=== PATIENT | male | born 1995 | race American Indian/Alaskan Native ===

== ENCOUNTER 2017-10-02 14:48 | Emergency (ER) | payer BC ==
[2017-10-02 16:05] VITALS: BP 154/104
[2017-10-02] MEDS ORDERED: ZOFRAN IV ONE (17:10)
[2017-10-02] MEDS ORDERED: NACL 0.9% 1000 ML 1,000 ML IV ONE (17:10)
--- NOTE | 2017-10-02 17:31 | Event Note ---
Date: 10/02/17 Patient is a 22-year-old male past SURGICAL AVOID ABUSE WHO PRESENTS WITH NAUSEA AND VOMITING PATIENT STATES HE SMOKES WEED EVERYDAY IS ACTIVELY VOMITING ON THE IV FLUIDS IV ZOFRAN CBC BMP
[2017-10-02 17:46] LABS: BUN/Creatinine Ratio 16; Blood Urea Nitrogen 16 mg/dL (9-20); Hemolysis Index 61
[2017-10-02 17:49] LABS: Hematocrit 55.2 % (35.5-45.6); Hemoglobin 18.8 gm/dl (11.8-15.2); Mean Corpuscular HGB Conc 34 % (32-34); Mean Corpuscular Hemoglobin 31 pg (28-32); Mean Corpuscular Volume 92 fl (84-94); Platelet Count 194 K/mm3 (140-440); Red Blood Count 6.02 M/mm3 (3.65-5.03); Red Cell Distribution Width 13.5 % (13.2-15.2)
--- NOTE | 2017-10-02 20:31 | Cat Scan Report ---
FINAL REPORT PROCEDURE: CT ABDOMEN WO CON TECHNIQUE: Computerized axial tomography of the abdomen was performed without intravenous contrast. This study is performed without intravascular contrast material and its sensitivity for abdominal and pelvic pathology, including neoplasms, inflammation, abscess, free fluid, thrombosis, arterial dissection and infarction, is reduced compared with a contrast enhanced study. HISTORY: RUQ LUQ pain COMPARISON: No prior studies are available for comparison. FINDINGS: Liver, spleen, pancreas and adrenal glands are within normal limits. Bilateral kidneys demonstrate normal density without calculi or hydronephrosis. Aorta is of normal caliber. There is no free fluid or free air. Gallbladder is unremarkable. Small and large bowel loops are within normal limits. Appendix is partially visualized and appears unremarkable. There is mild degree residual stool. IMPRESSION: No acute intra-abdominal pathology as visualized on this noncontrast study.
--- NOTE | 2017-10-02 20:39 | Emergency Department Report ---
Vomiting/Diarrhea - HPI Chief Complaint: Nausea/Vomiting/Diarrhea Stated Complaint: VOMITING/NAUSEA/DIARRHEA Time Seen by Provider: 10/02/17 17:32 Duration: 1 week Severity: moderate Nausea/Vomiting Severity: Moderate Diarrhea Severity: None Pain Location: Epigastric Pain Severity: Mild Symptoms: Yes Able to Tolerate Fluids, No Watery Diarrhea, No Bloody diarrhea, No Fever, No Recent Unusual Foods, No Recent Untreated Water, No Recent use of Antibiotics, No Family w/ Similar Symptoms, No Contacts w/ Similar Symptoms, No Rash, No Hematuria, No Recent URI Symptoms Other History: This is a 22 y.o. male that presents with nausea and vomiting for 1 week. He went to Urgent Care last Sunday and started on prenisone and nasal saline for post nasal drip. Patient is concerned because he is having symptoms on and off for 4 months. He was wondering if it is coming from altitude change with travel. He has been to [place] and [place] for the past few months, returned 2 weeks ago. Admits to smoking marijuana daily and that is part of his trips to [place]. He vomited 4-8 times today, clear discharge, with intermittent epigastric pain. Denies chest pain, headache, dirrhea, and travel out of the country. ED Review of Systems ROS: Stated complaint: VOMITING/NAUSEA/DIARRHEA Other details as noted in HPI Constitutional: denies: chills, fever Respiratory: denies: cough, shortness of breath, wheezing Cardiovascular: denies: chest pain, palpitations Gastrointestinal: abdominal pain, nausea, vomiting (4-8 times today, intermittent for 1 week). denies: diarrhea, constipation Skin: denies: rash, lesions Neurological: denies: headache, weakness, paresthesias ED Past Medical Hx - Past Medical History Previous Medical History?: No - Surgical History Past Surgical History?: No - Social History Smoking Status: Never Smoker Substance Use Type: None - Medications Home Medications: Home Medications Medication Instructions Recorded Confirmed Last Taken Type Ciprofloxacin HCl [Cipro] 500 mg PO BID 7 Days #14 tablet 10/02/17 Unknown Rx Metoclopramide HCl [Metoclopramide 5 mg PO Q6HR PRN #20 tab 10/02/17 Unknown Rx ODT TAB] Vomiting Diarrhea Exam - Exam General: Vital signs noted. No distress. Alert and acting appropriately. HEENT: Yes Pharyngeal Erythema, Yes Moist Mucous Membranes, No Pharyngeal Exudates, No Rhinorrhea, No Conjuctival Injection, No Frontal Tenderness, No Maxillary Tenderness Neck: No Adenopathy Lungs: Yes Clear Lung Sounds, Yes Good Air Exchange, No Wheezes, No Stridor, No Cough, No Nasal Flaring, No Retractions, No Use of Accessory Muscles Heart exam: Regular: Yes, Murmur: No, Tachycardia: No Abdomen: Tenderness: Yes (RUQ), Peritoneal Signs: No, Distention: No, Hyperactive Bowel sounds: No Skin exam: Rash: No, Edema: No, Normal turgor: No Neurologic: Alert and oriented, no deficits. Musculoskeletal: Unremarkable. ED Course Vital Signs 10/02/17 15:59 Temperature 97.7 F Pulse Rate 73 Respiratory 16 Rate Blood Pressure 154/104 O2 Sat by Pulse 97 Oximetry ED Medical Decision Making - Lab Data Result diagrams: 10/02/17 17:24 10/02/17 17:24 - Radiology Data Radiology results: report reviewed CT of abdomen: IMPRESSION: No acute intra-abdominal pathology as visualized on this noncontrast study. - Medical Decision Making 22 y.o. male that presents with abdominal pain, nausea and vomiting for 1 week. Started on prednisone and nasal spray at Urgent Care Sunday for post nasal drip. Patient examined by me, no distress noted. Blood pressure elevated. Actively vomiting in FTWR. Given zofran 8 mg IV, NS 1L IV x [address] of abdomen and pelvis obtained. Patient informed of normal results. Obtained CBC and BMP. Start cipro and metoclopramide for gastroenteritist. F/U with PCP. Discharged home. Critical care attestation.: If time is entered above; I have spent that time in minutes in the direct care of this critically ill patient, excluding procedure time. ED Disposition Clinical Impression: Gastroenteritis Disposition: DC-01 TO HOME OR SELFCARE Is pt being admited?: No Does the pt Need Aspirin: No Condition: Stable Instructions: Gastroenteritis (ED), Acute Nausea and Vomiting (ED) Additional Instructions: Complete full course of medication as prescribed. Follow up with Primary Care Provider in 48-72 hours. Increase fluids to prevent dehydration. Avoid smoking and rest. Prescriptions: Ciprofloxacin HCl [Cipro] 500 mg PO BID 7 Days #14 tablet Metoclopramide HCl [Metoclopramide ODT TAB] 5 mg PO Q6HR PRN #20 tab PRN Reason: Nausea And Vomiting Referrals: [facility] [Provider Group] - 3-5 Days [facility] [Provider Group] - 3-5 Days [facility] [Outside] - 3-5 Days [facility] [Outside] - 3-5 Days Time of Disposition: 20:52 Print Language: CYPRIOT
== END 2017-10-02 22:01 | disposition home or self-care (01) ==
LOC: ED 14:48
DX: K52.9 Noninfective gastroenteritis and colitis, unspecified (principal); F12.90 Cannabis use, unspecified, uncomplicated; Z88.0 Allergy status to penicillin
CPT/HCPCS: 36415; 74150; 80048; 85027; 96361; 96374; 99284; J2405; J7030